=== PATIENT | male | born 1940 | race Caucasian/White ===

== ENCOUNTER 2016-11-25 12:43 | Inpatient (IN) | payer OTHER, BC ==
[~2016-11-25] VITALS: Ht 188 cm; Wt 100.7 kg
[2016-11-25 13:23] LABS: POINT-OF-CARE METER ID UU14174215; POINT-OF-CARE USER ID AHSSSJB31
[2016-11-25 13:30] VITALS: BP 100/74
[2016-11-25] MEDS ORDERED: VITAMIN D31000 UNI2 PO (14:55)
[2016-11-25] MEDS ORDERED: HYDROCHLOROTHIA25 MG PO (14:56)
[2016-11-25] MEDS ORDERED: GLUCOSAMINE-CH1 EA19 PO (14:56)
[2016-11-25] MEDS ORDERED: LISINOPRIL20 MG PO (14:57)
[2016-11-25] MEDS ORDERED: CENTRUM SILVER1 EAC5 PO (14:57)
[2016-11-25] MEDS ORDERED: PYRIDOXINE HCL100 MG PO (14:57)
[2016-11-25] MEDS ORDERED: TIMOPTIC-X100 DROP/5 BOTH EYES (14:59)
[2016-11-25] MEDS ORDERED: CYANOCOBALAM1000 MCG PO (15:00)
[2016-11-25 15:10] VITALS: BP 98/58
[2016-11-25 16:33] LABS: POINT-OF-CARE METER ID UU14174215
[2016-11-25] MEDS ORDERED: METFORMIN HCL500 M4 PO (16:48)
[2016-11-25] MEDS ORDERED: TIMOPTIC-XE GEL5 ML BOTH EYES (16:49)
[2016-11-25 21:52] LABS: POINT-OF-CARE METER ID UU13113720
[2016-11-26 00:01] VITALS: BP 133/73
[2016-11-26 04:58] LABS: HEMATOCRIT 38.9 % (38.0-50.0); MCH 32.1 PG (29.0-34.0); MCV 91.7 FL (86-99); MEAN PLAT.VOLUME 10.8 uM^3 (9.0-12.4); PLATELET COUNT 177 K/uL (156-360); RBC DIS.WIDTH-SD 42.7 % (39-53); RED BLOOD COUNT 4.24 M/uL (4.00-5.50); WHITE BLOOD COUNT 8.3 K/uL (4.1-10.2)
[2016-11-26 05:03] LABS: CHLORIDE 97 mEq/L (99-109); POTASSIUM 4.8 mEq/L (3.7-5.4); SODIUM 133 mEq/L (136-147)
[2016-11-26 05:04] VITALS: BP 107/67; BP 113/56
[2016-11-26 05:06] LABS: GLUCOSE 157 mg/dL (70-99)
[2016-11-26 05:07] LABS: ANION GAP 9 MEQ/L (2-14)
[2016-11-26 05:08] LABS: TOTAL BILIRUBIN 2.9 mg/dL (0.0-1.0)
[2016-11-26 05:09] LABS: ALKALINE PHOSPHATASE 70 IU/L (3-129); GFR ESTIMATE (CALCULATED) > 59 mL/min/
[2016-11-26 05:10] LABS: UREA NITROGEN (BUN) 22 mg/dL (9-23)
[2016-11-26 07:34] LABS: POINT-OF-CARE METER ID UU14174215; POINT-OF-CARE USER ID AHSSSJB31
[2016-11-26 11:49] LABS: POINT-OF-CARE METER ID UU14174215; POINT-OF-CARE USER ID AHSSSJB31
[2016-11-26 15:21] VITALS: BP 118/86
[2016-11-26 16:23] LABS: POINT-OF-CARE METER ID UU13113720
[2016-11-26 21:12] LABS: POINT-OF-CARE METER ID UU14174215
[2016-11-27 05:48] VITALS: BP 139/64
[2016-11-27 08:44] LABS: POINT-OF-CARE METER ID UU14174215; POINT-OF-CARE USER ID AHSSSJB31
[2016-11-27 12:32] LABS: POINT-OF-CARE METER ID UU13113720; POINT-OF-CARE USER ID AHSSSJB31
[2016-11-27 15:18] VITALS: BP 94/63
[2016-11-27 16:24] LABS: POINT-OF-CARE METER ID UU14174215
[2016-11-27 21:10] LABS: POINT-OF-CARE METER ID UU13113720
[2016-11-28 05:30] VITALS: BP 135/76
[2016-11-28 06:49] LABS: POINT-OF-CARE METER ID UU14174215
[2016-11-28 11:46] LABS: POINT-OF-CARE METER ID UU13113720; POINT-OF-CARE USER ID ENVGAF
[2016-11-28 17:01] LABS: POINT-OF-CARE METER ID UU14174215
[2016-11-28 17:08] VITALS: BP 106/60
[2016-11-28 21:06] LABS: POINT-OF-CARE METER ID UU13113720
[2016-11-29 05:54] VITALS: BP 127/61
[2016-11-29 07:29] LABS: POINT-OF-CARE METER ID UU14174215; POINT-OF-CARE USER ID ENVGAF
[2016-11-29 11:38] LABS: POINT-OF-CARE METER ID UU14174215; POINT-OF-CARE USER ID ENVGAF
[2016-11-29 16:02] VITALS: BP 117/64
[2016-11-29 16:21] LABS: POINT-OF-CARE METER ID UU13113720
[2016-11-29 20:58] LABS: POINT-OF-CARE METER ID UU13113720
[2016-11-30 05:38] VITALS: BP 132/74
[2016-11-30 08:29] LABS: POINT-OF-CARE METER ID UU13113720; POINT-OF-CARE USER ID AHSSSJB31
[2016-11-30 12:12] LABS: POINT-OF-CARE METER ID UU13113720; POINT-OF-CARE USER ID AHSSSJB31
[2016-11-30 15:47] VITALS: BP 111/63
[2016-11-30 16:26] LABS: POINT-OF-CARE METER ID UU14174215
[2016-11-30 21:10] LABS: POINT-OF-CARE METER ID UU13113720
[2016-12-01 05:27] VITALS: BP 126/65
[2016-12-01 07:35] LABS: POINT-OF-CARE METER ID UU13113720
== END 2016-12-01 09:21 | disposition short-term general hospital (02) | DRG 945 ==
LOC: 3WEST 12:43
PROVIDERS: Physical Medicine & Rehabilitation Pain Medicine
PROC: F07M0ZZ Range of Motion and Joint Mobility Treatment of Musculoskeletal System - Whole Body (ICD-10-PCS; principal; 2016-11-25)
DX: S06.5X0D Traumatic subdural hemorrhage without loss of consciousness, subsequent encounter (principal); G81.91 Hemiplegia, unspecified affecting right dominant side; E87.1 Hypo-osmolality and hyponatremia; S06.4X0D Epidural hemorrhage without loss of consciousness, subsequent encounter; F09 Unspecified mental disorder due to known physiological condition; I10 Essential (primary) hypertension; E11.9 Type 2 diabetes mellitus without complications; E53.8 Deficiency of other specified B group vitamins; M54.5 Low back pain; G89.29 Other chronic pain; Z87.891 Personal history of nicotine dependence
CPT/HCPCS: 70450; 80053; 82948; 85027; 87493; 96125 GN; 97530 GP; 99201 TC; J1815